=== PATIENT | female | born 1980 | race Caucasian/White ===

== ENCOUNTER 2018-09-06 18:24 | Emergency (ER) | payer OTHER ==
[~2018-09-06] VITALS: Ht 167.6 cm; Wt 55.3 kg
[2018-09-06 18:34] VITALS: Ht 167.6 cm; Wt 55.3 kg
[2018-09-06 20:30] LABS: microscopic required? NO
[2018-09-06 20:38] LABS: UA SPECIFIC GRAVITY <=1.005 (1.005-1.035); urine erythrocyte NEGATIVE (NEGATIVE)
[2018-09-06 20:41] LABS: PLATELET COUNT 107 x10^3mcL (130-400)
[2018-09-06 20:43] LABS: CARBON DIOXIDE 24.7 mmol/L (21-32); CHLORIDE SERUM 102 mmol/L (98-107); CREATININE SERUM 0.5 mg/dL (0.6-1.0); GFR1 > 60 mL/min; GLUCOSE SERUM 88 mg/dL (74-106); POTASSIUM SERUM 3.7 mmol/L (3.5-5.1); SODIUM SERUM 136 mmol/L (136-145)
[2018-09-06 20:47] LABS: ALKALINE PHOSPHATASE 43 U/L (46-116); ALT/SGPT 16 U/L (14-59); AST/SGOT 18 U/L (15-37); BILIRUBIN TOTAL 0.32 mg/dL (0.20-1.00); TOTAL PROTEIN, SERUM 7.9 g/dL (6.4-8.2)
[2018-09-06 21:05] LABS: MONOCYTE 2 % (0-7); SEGMENTED NEUTROPHILS 65 % (37-75)
[2018-09-06 21:06] LABS: rbc morphology (normal/abnorm) NORMAL (NORMAL)
[2018-09-06 22:21] VITALS: BP 103/67
== END 2018-09-06 22:22 | disposition home or self-care (01) ==
LOC: ED 18:24
PROVIDERS: Emergency Medicine
DX: O99.111 Other diseases of the blood and blood-forming organs and certain disorders involving the immune mechanism complicating pregnancy, first trimester (principal); D69.6 Thrombocytopenia, unspecified; Z3A.01 Less than 8 weeks gestation of pregnancy; Z88.1 Allergy status to other antibiotic agents
CPT/HCPCS: 36415